=== PATIENT | female | born 1980 | race Hispanic/Latino ===

== ENCOUNTER 2016-04-03 06:37 | Inpatient (IN) | payer OTHER ==
[~2016-04-03] VITALS: Ht 165.1 cm; Wt 84.4 kg
[2016-04-03] VITALS (11 sets, daily range): BP systolic 103–140; BP diastolic 60–90
[~2016-04-03 06:37] MED LIST: IBUPROFEN800 MG PO; NOHOMEMEDS; PRENATAL COMPL1 EACH PO
[2016-04-03 08:38] LABS: EOSINOPHIL (%) 1.1 % (0-5); EOSINOPHIL COUNT 0.1 K/uL (0-0.3); HEMATOCRIT 50.9 % (36.0-46.0); LYMPHOCYTE COUNT 0.9 K/uL (1.0-2.8); MCH 30.2 PG (29.0-34.0); MCHC 34.8 G/DL (30.0-36.0); MCV 86.7 FL (83-99); MEAN PLAT.VOLUME 11.9 uM^3 (9.5-12.4); MONOCYTE (%) 8.1 % (3-12); MONOCYTE COUNT 0.4 K/uL (0-0.8); NEUTROPHIL (%) 71.3 % (45-76); NEUTROPHIL COUNT 3.2 K/uL (1.8-6.4); PLATELET COUNT 139 K/uL (156-360); RBC DIS.WIDTH-CV 13.6 % (11.8-14.6); RED BLOOD COUNT 5.87 M/uL (3.80-5.20); WHITE BLOOD COUNT 4.5 K/uL (4.1-10.2)
[2016-04-03 09:20] LABS: DRSB INTERNAL CONTROL PASS; PROBE CHECK PASS; SPECIMEN PROCESSING CONTROL PASS
[2016-04-03 10:04] LABS: UR CREATININE CONCENTRATION 208.6 MG/DL
[2016-04-03 10:38] LABS: ANION GAP 10 MEQ/L (2-14); CHLORIDE 104 MEQ/L (99-109); POTASSIUM 3.7 MEQ/L (3.7-5.4); SAMPLE HEMOLYSIS CHECK 0; SAMPLE ICTERIC CHECK 0; SAMPLE LIPEMIA CHECK 0; SODIUM 138 MEQ/L (136-147); TOTAL BILIRUBIN 0.9 MG/DL (0.0-1.0)
[2016-04-03 10:44] LABS: ALKALINE PHOSPHATASE 205 IU/L (3-129); GFR ESTIMATE (CALCULATED) > 59 mL/min/; GLUCOSE 82 mg/dL (70-99); LACTATE DEHYDROGENASE 161 IU/L (20-246); UREA NITROGEN (BUN) 9 mg/dL (9-23); URIC ACID 4.9 mg/dL (3.1-9.2)
[2016-04-04 07:45] VITALS: BP 131/76
[2016-04-04 08:54] LABS: ALKALINE PHOSPHATASE 177 IU/L (3-129); ANION GAP 7 MEQ/L (2-14); CHLORIDE 105 MEQ/L (99-109); GFR ESTIMATE (CALCULATED) > 59 mL/min/; GLUCOSE 100 mg/dL (70-99); LACTATE DEHYDROGENASE 188 IU/L (20-246); POTASSIUM 3.6 MEQ/L (3.7-5.4); SAMPLE HEMOLYSIS CHECK 0; SAMPLE ICTERIC CHECK 0; SAMPLE LIPEMIA CHECK 0; SODIUM 140 MEQ/L (136-147); TOTAL BILIRUBIN 0.8 MG/DL (0.0-1.0); UREA NITROGEN (BUN) 8 mg/dL (9-23); URIC ACID 5.4 mg/dL (3.1-9.2)
[2016-04-04 08:59] LABS: EOSINOPHIL COUNT 0.1 K/uL (0-0.3); HEMATOCRIT 37.4 % (36.0-46.0); IMMATURE GRANULOCYTE (%) 0.3 % (0.0-0.7); MCH 30.7 PG (29.0-34.0); MCV 90.3 FL (83-99); MEAN PLAT.VOLUME 11.8 uM^3 (9.5-12.4); MONOCYTE (%) 4.8 % (3-12); MONOCYTE COUNT 0.4 K/uL (0-0.8); NEUTROPHIL COUNT 6.5 K/uL (1.8-6.4); RBC DIS.WIDTH-CV 13.8 % (11.8-14.6)
[2016-04-04 09:00] LABS: PLATELET COUNT 196 K/uL (156-360); RED BLOOD COUNT 4.14 M/uL (3.80-5.20); WHITE BLOOD COUNT 9.1 K/uL (4.1-10.2)
[2016-04-04 11:17] LABS: HBSG INDEX 0.17
[2016-04-04 11:18] LABS: HPCA INDEX 0.06
[2016-04-04 11:19] LABS: ANTI-HEPATITIS A VIRUS (IGM) Nonreactive; HAV INDEX 0.22
[2016-04-04 11:20] LABS: ANTI-HEPATITIS B CORE (IGM) Nonreactive; HBC IgM INDEX 0.08
[2016-04-04 22:20] VITALS: BP 105/66
[2016-04-05 07:35] VITALS: BP 113/67
[2016-04-05 08:33] VITALS: BP 108/68; BP 110/70
[2016-04-05] MEDS ORDERED: IBUPROFEN800 MG PO (11:42)
[2016-04-05 15:02] VITALS: BP 121/78
== END 2016-04-05 22:52 | disposition home or self-care (01) | DRG 775 ==
LOC: LDRP-OP → 2WEST 06:38
PROVIDERS: Advanced Practice Midwife
PROC: 10E0XZZ Delivery of Products of Conception, External Approach (ICD-10-PCS; principal; 2016-04-03)
DX: O60.14X0 Preterm labor third trimester with preterm delivery third trimester, not applicable or unspecified (principal); Z3A.36 36 weeks gestation of pregnancy; Z37.0 Single live birth
CPT/HCPCS: 80053; 80074; 82570; 83615; 84156; 84550; 85025; 87070; 87075; 87077; 87081; 87147; 87186; 87205; 87653; J0290; J0595; J7050; J7120